=== PATIENT | female | born 1950 | race Caucasian/White ===

== ENCOUNTER 2022-05-13 14:51 | Emergency (ER) | payer OTHER, SELFPAY ==
[2022-05-13] VITALS (8 sets, daily range): BP systolic 126–158; BP diastolic 67–84; PULSE 59–77; RESP 13–23; TEMP 36.6; O2SAT 91–97; BMI 27.8
--- NOTE | 2022-05-13 15:29 | ED.VIS.DYS ---
HPI History of Present Illness Chief Complaint: Shortness of Breath Informant: patient Onset/Context/Timing Onset: Weeks (1-1.5) Context: gradual and onset Timing: Intermittent (Basically with exertion) Quality: Positive for Dyspnea on exertion Current Severity: Mild Maximum Severity: Moderate Worsened by: Exertion; Not Worsened By Lying flat Relieved by: Rest Associated Symptoms Negative for cough Chest Pain: Positive for Intermittent (Soreness, middle chest, occasionally with breathing) Narrative Narrative: Patient has been short of breath for little over a week, started after she got back from a bus trip to and from [place]. She states simultaneously with this she was swollen and sore in both lower extremities. She waited for almost a week before she went to the doctor because she expected it to get better on its own because it was abnormal for her, but it did not. She saw her PCP 3 or so days ago, was prescribed a diuretic, she started that 2 days ago, she said that the swelling in her legs was already getting better though, but the dyspnea was not. She states occasionally she has a midsternal chest discomfort when she takes a deep breath but not always. She does not have orthopnea, cough, fevers or chills. No GI symptoms. No palpitations, near-syncope or syncope. No history of heart or lung problems. Before the diuretic, she was not taking any prescription medications, and her only past medical history was breast cancer and neuropathy in her feet and hands due to the chemotherapy. [facility] Medical History (Updated 05/13/22 @ 19:[address] Ye Rodas MD) Breast cancer Neuropathy Home Medications lymphedema sleeve #1 ea 02/25/17 [Rx Last Taken Unknown] Allergy/AdvReac Type Severity Reaction Status Date / Time Penicillins [PCN] Allergy PT UNABLE Verified 05/13/22 15:10 TO RESPOND-NEEDS F/U Sutures Allergy NEEDS Verified 05/13/22 15:11 FOLLOW-UP Surgical History History of appendectomy Hx of mastectomy Social History Smoking Status: Never smoker ROS ROS ED Constitutional Constitutional ED: Denies chills or fever(s) Eyes Eyes: Denies change in vision or diplopia ENT ENT ED: Denies rhinorrhea or sore throat Cardiovascular Cardiovascular: Reports chest pain and leg edema; Denies orthopnea, palpitations or paroxysmal nocturnal dyspnea Respiratory/Chest Respiratory/Chest: Reports dyspnea and dyspnea on exertion; Denies cough, orthopnea or paroxysmal nocturnal dyspnea Gastrointestinal Gastrointestinal: Denies abdominal pain, diarrhea, nausea or vomiting Genitourinary Genitourinary ED: Denies dysuria or hematuria Musculoskeletal Musculoskeletal: Denies back pain or neck pain Integumentary Denies abscess or rash Neurologic Neurologic: Denies headache(s), paresthesias or weakness Psychiatric Psychiatric: Denies anxiety or suicidal thoughts EXAM Physical Exam Const Vital Signs: 05/13/22 14:54 05/13/22 15:14 05/13/22 15:15 Temperature 97.8 F Temperature Source Temporal Pulse Rate 77 74 Respiratory Rate 16 18 Respiratory Effort Short of Breath Respiratory Depth Shallow Respiratory Pattern Normal Blood Pressure 126/84 H 152/83 H Blood Pressure Mean 98 106 Pulse Ox 97 91 Oxygen Delivery Method Room Air Room Air Room Air 05/13/22 17:48 05/13/22 19:04 05/13/22 19:50 Temperature Temperature Source Pulse Rate 61 63 59 L Respiratory Rate 13 23 H 20 H Respiratory Effort Respiratory Depth Respiratory Pattern Blood Pressure 139/74 H 158/77 H 132/67 H Blood Pressure Mean 95 104 Pulse Ox 94 95 94 Oxygen Delivery Method Room Air Room Air Positive well nourished and well developed General Appearance ED: well developed and NAD HEENT Reports moist mucous membranes normocephalic and atraumatic Eyes PERRL and EOMs intact bilaterally Neck full ROM, no lymphadenopathy, supple and no JVD Chest Wall Chest Narrative: Normal inspection, nontender no crepitance Resp normal respiratory effort Resp Narrative: Few high-pitched possible rhonchi in the lower bases bilaterally, otherwise clear. Conversive in full sentences without difficulty. Cardio regular rate, regular rhythm and no murmurs Rate: Negative for tachycardic GI non-tender and non-distended Auscultation: normoactive bowel sounds Palpation: soft Back/Spine no CVA tenderness General Back: other FROM Extremity normal to inspection General Extremety ED: Yes edema; Negative for pulses abnormal or tenderness General Extremity: edema bilateral lower extremity Details: trace (Symmetric without calf tenderness bilaterally); Negative for pulses abnormal Neuro oriented x3, CN's II-XII intact bilaterally and no sensory deficits noted Sensorium / Orientation: awake and alert Motor Exam: strength 5/5 throughout Skin no rashes or lesions noted and no wounds MDM MDM MDM Narrative Medical decision making narrative: 2 view chest x-ray obtained, on my interpretation shows a moderate left-sided pleural effusion. The rest of the work-up included a D-dimer which was elevated, so I sent her for CT angiography of the chest which shows no pulmonary embolus, but it does confirm the pleural effusion, no consolidation/pneumonia, and as well a small pleural effusion on the right side, no pericardial effusion. I reviewed the images and I agree with the radiologist interpretation. The rest of her testing is noted and unremarkable, arguing against congestive heart failure acutely. My concern would be for possible recurrence of her breast cancer, it was left-sided, she had lymph nodes resected from that side as well, this may or may not have anything to do with the abnormal lymph nodes that were seen in her abdomen. The patient is short of breath but she states she is not dyspneic at rest, and she can walk quite a ways before having to rest. We ambulated her in the ED, she is not hypoxic. I discussed options with the patient, she prefers to stay in the hospital to get a thoracentesis sooner than later because it is , it is the evenings of scheduling is not open, I discussed with radiology and the schedule tomorrow is full, therefore attempting to decrease delays. I discussed with Dr. Crain hospitalist, she states it would not be appropriate to admit the patient because she does not meet inpatient criteria. She did discuss with Dr. Johnson, and states that she is encouraged to call the office tomorrow morning and they will help to set her up for an outpatient thoracentesis and the appropriate testing in agreement with the above. I discussed with the patient, gave her Dr. Johnson's information, and reasons to return. Lab Data Attestation: I reviewed the patient's lab results. Labs: Laboratory Results - last 24 hr 05/13/22 05/13/22 05/13/22 15:10 15:10 15:10 WBC 7.7 RBC 5.67 H Hgb 17.5 H Hct 51.8 H MCV 91.4 MCH 30.9 MCHC 33.8 RDW Std Deviation 45.7 H RDW Coeff of Bucky 13.5 Plt Count 254 MPV 11.1 Immature Gran % (Auto) 0.300 Neut % (Auto) 67.2 Lymph % (Auto) 21.6 [place] % (Auto) 8.9 Eos % (Auto) 1.6 Baso % (Auto) 0.4 Absolute Neuts (auto) 5.2 Absolute Lymphs (auto) 1.66 Nucleated RBC % 0 D-Dimer Quant (PE/DVT) 1.07 H* Sodium 137 Potassium 3.2 L Chloride 100 Carbon Dioxide 30.0 Anion Gap 7 BUN 24 H Creatinine 1.02 Estim Creat Clear Calc 48.48 Est GFR (MDRD) Af Amer 68 Est GFR (MDRD) Non-Af 57 L BUN/Creatinine Ratio 23.5 H Glucose 109 H Calcium 10.3 H Troponin I High Sens 5 B-Natriuretic Peptide 05/13/22 15:10 WBC RBC Hgb Hct MCV MCH MCHC RDW Std Deviation RDW Coeff of Bucky Plt Count MPV Immature Gran % (Auto) Neut % (Auto) Lymph % (Auto) [place] % (Auto) Eos % (Auto) Baso % (Auto) Absolute Neuts (auto) Absolute Lymphs (auto) Nucleated RBC % D-Dimer Quant (PE/DVT) Sodium Potassium Chloride Carbon Dioxide Anion Gap BUN Creatinine Estim Creat Clear Calc Est GFR (MDRD) Af Amer Est GFR (MDRD) Non-Af BUN/Creatinine Ratio Glucose Calcium Troponin I High Sens B-Natriuretic Peptide 7.7 Radiography Diagnostic Testing: Clinical Impression(s) from Imaging Studies Chest X-Ray 05/13/22 15:40 IMPRESSION: Moderate left and small right layering effusions with basilar atelectasis with differential including underlying CHF and cardiogenic setting. Superimposed basilar infiltrates are also a consideration. Electronically Signed: Lawrence Michelle DO at 16:13 EDT Reading Location ID and State: [facility] / [place] , Service support , Chest CTA 05/13/22 16:52 IMPRESSION: 1. No evidence of pulmonary embolus or aortic dissection. 2. Moderate to large left and small right pleural effusion with basilar atelectasis. No evidence of distinct focal infiltrate. 3. Partially viewed periaortic subcentimeter lymph nodes within the upper abdomen of unclear etiology, consider a slight CT abdominal imaging for further characterization. Electronically Signed: Lawrence Michelle DO at 17:23 EDT , Rhythm Strip Rhythm Strip: Sinus Rhythm Rate: 70 Ectopy: None EKG Initial EKG: Attestation: I personally reviewed and interpreted this EKG as follows: Interpretation: Sinus Rhythm and No Acute Injury Pattern Comments: Normal EKG Management Discussion w/another healthcare provider: Hospitalist Discharge Plan Triage Chief Complaint: Shortness of Breath ED Provider: Ye Rodas Dx/Rx/DC Orders Clinical Impression: Pleural effusion, left Instructions: ED Pleural Effusion Prescriptions: No Action (DME) lymphedema sleeve 20-30 Qty: 1 0RF Dose Instruction: As directed Rx Instructions: 1 compression sleeve 20-30mmHG strength Primary Care Provider: Polo Figueroa Referrals: Parveen Johnson MD [Med Staff - Active Staff] - 1 Day (call in AM for info on getting set up for thoracentesis & follow up) NOT,DEFINED [Non-Staff] - Activity Restrictions/Additional Instructions: If you are so short of breath you feel like you cannot wait until your thoracentesis, then return to the ER to be reevaluated Disposition Disposition: Home, Self Care
--- NOTE | 2022-05-13 15:40 | RAD_ITS ---
STUDY: X-RAY CHEST REASON FOR EXAM: Female, 71 years old. sob TECHNIQUE: PA and lateral views of the chest. COMPARISON: None. FINDINGS: Small right moderate left layering effusion is present. Bilateral basilar atelectasis with superimposed infiltrates are not excluded. Normal size heart. Normal mediastinum and patrick. Normal visualized pulmonary arteries. There is atherosclerotic tortuosity of the aortic arch and descending thoracic aorta. Normal visualized thoracic spine. Normal visualized ribs, clavicles, and shoulders. There is no demonstrated abnormality of the visualized soft tissue structures of the upper abdomen. RAD/Chest PA and Lateral IMPRESSION: Moderate left and small right layering effusions with basilar atelectasis with differential including underlying CHF and cardiogenic setting. Superimposed basilar infiltrates are also a consideration. Electronically Signed: Lawrence Michelle DO at 16:13 EDT ,
[2022-05-13 16:09] LABS: Absolute Lymphocyte Count 1.66 X10^3/uL (0.83-4.51); Absolute Neutrophil Count 5.2 X10^3/uL (2.0-7.7); Basophil# 0.03 X10^3/uL; Basophil% 0.4 % (0-1); Eosinophil# 0.12 X10^3/uL; Eosinophils% 1.6 % (0-5); Hematocrit 51.8 % (37-47); Hemoglobin 17.5 g/dL (12.0-15.0); Lymphocyte # 1.66 X10^3/ul (0.83-4.51); Lymphocyte % 21.6 % (19-41); Mean Corp Hgb Conc 33.8 g/dL (32-36); Mean Corpuscular Hgb 30.9 pg (27.0-32.0); Mean Corpuscular Volume 91.4 fL (81-99); Mean Platelet Vol. 11.1 fl (6.2-12.0); Monocyte# 0.68 X10^3/uL; Monocyte% 8.9 % (0-10); NRBC Flagged by Analyzer 0 % (0-5); Neutrophil # 5.17 X10^3/uL (2.7-7.7); Neutrophil % 67.2 % (47-70); Platelet Count 254 K/mm3 (150-450); RBC Distribution Width CV 13.5 % (11.6-14.6); RBC Distribution Width SD 45.7 fl (35.1-43.9); Red Blood Count 5.67 M/mm3 (4.2-5.4); White Blood Count 7.7 K/mm3 (4.4-11.0)
[2022-05-13 16:12] LABS: Anion Gap 7 (5-15); BUN 24 mg/dL (7-18); BUN/Creat Ratio 23.5 RATIO (10-20); Calcium,Total 10.3 mg/dL (8.5-10.1); Chloride 100 mmol/L (98-107); Creatinine, Serum 1.02 mg/dL (0.55-1.02); EST Glomerular Filtration Rate 57 mL/min (>60); Est Glom Filt Rate - Afr Amer 68 mL/min (>60); Estimated Creatinine Clearance 48.48 ml/min; Glucose 109 mg/dL (74-106); Potassium 3.2 mmol/L (3.5-5.1); Sodium Level 137 mmol/L (136-145); Troponin-I HS 5 pg/mL (3.0-54.0)
[2022-05-13 16:25] LABS: D-Dimer Quantitative (DVT/PE) 1.07 FEU/ug/m (0.27-0.49)
[2022-05-13 16:43] LABS: BNP,B-Type NATRIURETIC PEPTIDE 7.7 pg/mL (0-100)
--- NOTE | 2022-05-13 16:52 | CT_ITS ---
STUDY: CTA CHEST REASON FOR EXAM: Female, 71 years old. sob, pleural effusion, elevated d-dimer, hx br ca RADIATION DOSAGE (If Supplied By Facility): CTDIvol = ( 13.65 ) mGy, DLP = ( 347.43 ) mGycm TECHNIQUE: The examination was performed with the intravenous administration of IV 100mL Isovue-370. Post-processing of the angiographic images was performed, with multiplanar reformation and 3D reconstruction. Individualized dose optimization techniques were used for this CT. COMPARISON: None. FINDINGS: Normal enhancement of the main pulmonary artery and right and left pulmonary arteries. Normal enhancement of the bilateral peripheral pulmonary arteries. There is no demonstrated pulmonary embolism. Normal thoracic aorta and visualized great vessels. There is no demonstrated aortic dissection. Normal heart and pericardium. Normal mediastinum. Normal hilar regions. Normal visualized trachea and bronchi. The lungs are well expanded. Left lower lobe atelectatic changes are present with minimal atelectasis at the right lower lobe. Small right and moderate left effusion is present. Normal chest wall structures. Normal osseous structures. There are scattered subcentimeter nodes within the periaortic region at the level of the celiac axis with the largest measuring [address]/CTA Chest W/WO Contrast IMPRESSION: 1. No evidence of pulmonary embolus or aortic dissection. 2. Moderate to large left and small right pleural effusion with basilar atelectasis. No evidence of distinct focal infiltrate. 3. Partially viewed periaortic subcentimeter lymph nodes within the upper abdomen of unclear etiology, consider a slight CT abdominal imaging for further characterization. Electronically Signed: Lawrence Michelle DO at 17:23 EDT ,
== END 2022-05-13 20:28 | disposition home or self-care (01) ==
PROVIDERS: Emergency Provider Emergency Medicine; PCP Family Medicine; Visit Provider Emergency Medicine
DX: J90 Pleural effusion, not elsewhere classified (principal); R79.1 Abnormal coagulation profile; Z85.3 Personal history of malignant neoplasm of breast
CPT/HCPCS: 71046; 71275; 80048; 83880; 84484; 85025; 85379; 93005; 99283; Q9967

== ENCOUNTER → 2022-05-17 | Outpatient (CLI) | payer SELFPAY ==
[2022-05-17 14:00] LABS: Platelet Count 244 K/mm3 (150-450)
[2022-05-17 14:07] LABS: Prothrombin Time (Protime)PT. 13.2 SECONDS (11.7-14.9)
[2022-05-17 14:08] LABS: Partial Thromboplast Time 23.6 Seconds (24.1-36.2)
[2022-05-17 14:12] LABS: ALB/GLOB Ratio 1.1 RATIO (0.9-2.4); Globulin 3.5 g/dL (2.2-4.2); LDH 204 U/L (84-246); Protein, Total 7.2 g/dL (6.4-8.2)
== END | disposition home or self-care (01) ==
PROVIDERS: PCP Family Medicine; Referring Provider Internal Medicine Critical Care Medicine; Visit Provider Internal Medicine Critical Care Medicine
DX: J90 Pleural effusion, not elsewhere classified (principal)
CPT/HCPCS: 36415; 83615; 84156; 85049; 85610; 85730

== ENCOUNTER → 2022-05-18 | Outpatient (CLI) | payer SELFPAY, OTHER ==
--- NOTE | 2022-05-17 | FLU_PTH ---
PATIENT: BEATA CROWE LOC: [facility]#:[id number] AGE/SX: 71/F ROOM: RE05/18/[address]: Dr. Navjot Willis DO : 1950 BED: DIS: 05/18/2022 SPEC #: [id number] RECD: 05/18/22 00:51 STATUS: DARIUS MONIQUE #: [id number] EVANS: 05/17/22 00:[address]: Navjot Willis DEPT: CYTOLOGY RECD BY: Jacob Stone ENTERED: 05/18/22 09:58 SP TYPE: Fluid OTHR DR: Dr. Polo Figueroa DO Tissues: THORACIC FLUID Procedures: Special Stain Group II Surgery Specimen Level IV Cytospin Fluid HEADER OPERATION: Thoracentesis PRE-OP DIAGNOSIS: Pleural effusion TISSUE SUBMITTED: Thoracentesis fluid for cytology DIAGNOSIS CYTOLOGY Thoracentesis fluid for cytology (cytospin and cell block): Rare atypical epithelioid cells with neuroendocrine features. AM:david 05/20/2022 COMMENT Clinical correlation is suggested. Immunohistochemistry ([id number]) supports the above diagnosis. Case has been reviewed in consultation with Dr. Harris who concurs with the above diagnosis. IDC:SJ CYTOLOGY STUDY Slides are reviewed. CYTOLOGY GROSS Received is 90 ml of carin cloudy fluid labeled with the patient's name and and designated per the requisition as thoracentesis. Submitted for cytology preparation including cell block. / david 05/18/2022 TC: CPT: 88910, 49693
--- NOTE | 2022-05-17 | IMM_PTH ---
PATIENT: BEATA CROWE LOC: [facility]#:[id number] AGE/SX: 71/F ROOM: RE05/18/[address]: Dr. Navjot Willis DO : 1950 BED: DIS: 05/18/2022 SPEC #: [id number] RECD: 05/19/22 13:50 STATUS: DARIUS REQ #: [id number] EVANS: 05/17/22 00:[address]: Navjot Willis DEPT: IMMUNOHISTOCHEMISTRY RECD BY: Brandee Pierce ENTERED: 05/19/22 13:52 SP TYPE: IMMUNO OTHR DR: Dr. Polo Figueroa DO Tissues: THORACIC FLUID Procedures: Synapto (add) NAPSIN A (add) Aamir Ret (add) CD56 (add) CHROMO (add) CK20 (add) CK7 (add) KI-67 (add) MAMM (add) P53 (add) AL (add) TTF1 (add) Pankeratin (add) GATA3 (add) CD68 (ADD) ER (initial) NSE (add) PHYSICIAN [facility] INSTITUTION [address] [address] SPECIMEN INFORMATION: Tissue Source: Thoracentesis fluid Clinical Info: Pleural effusion Specimen Number: [id number] CPT code: 22070, 71803 x16 METHODOLOGY: Deparaffinized sections of prefer/formalin-fixed tissue or PAP/DQ stained slides are incubated with monoclonal/polyclonal antibodies/oligonucleotide probes. Localization is made via biotin free immunoperoxidase method. Appropriate controls are performed and reacted as expected. Results on target cell population are indicated in the following table: RESULTS: ANTIBODY / CLONE RESULT ER (6F11) negative AL (1E2) negative Mammaglobin (31A5) negative GATA3 (L50-823) positive AE1-3 (AE1/AE3/PCK26) positive CK7 (OV-TL12/30) positive CK20 (KS20.8) negative CD68 (KP-1) negative TTF-1 (8G7G3/1) negative Napsin A (Rabbit Polyclonal) negative CALRET (polyclonal) negative P53 (DO-7) positive Ki-67 (30-9) positive, rare cells Synapto (polyclonal) positive Chromo (LK2H10) negative CD56 (123C3.D5) negative NSE Neuron Specific Enolase positive, dim These tests were developed and their performance characteristics determined by [facility]. They may not have been cleared or approved by the U.S. Food and Drug Administration. The FDA has determined that such clearance or approval is not necessary. The above immunohistochemical/dualISH markers are ordered and reviewed by the Pathologist. INTERPRETATION: Thoracentesis fluid (cell block): Rare atypical epithelioid cells with neuroendocrine features. AM:david 05/20/2022 Case has been reviewed in consultation with Dr. Harris who concurs with the above diagnosis. IDC:[id number]
--- NOTE | 2022-05-18 07:29 | US_ITS ---
EXAM: Ultrasound-guided thoracentesis HISTORY: Pleural Effusion COMPARISON: None Technique: Ultrasound-guided, 100 mL fluid sent to lab for further evaluation FINDINGS: After informed consent was obtained, which included discussion of risks and benefits of the procedure including the possibility of pneumothorax and chest tube insertion, an appropriate site for ultrasound-guided thoracentesis determined in the left hemithorax. The area was prepped and draped in a sterile manner, and 2% Xylocaine was used as local anesthetic. Under ultrasound guidance, a valved range catheter was advanced into the left hemithorax. Straw-colored serous fluid return was noted and the first 100 mL were obtained and set aside for laboratory analysis. The tube was then hooked to suction and another 1050 mL of straw-colored serous fluid was withdrawn from the hemithorax before the patient could the procedure no longer. Post procedural chest x-ray did not show evidence of pneumothorax. Patient tolerated the procedure with no immediate complications. US/Thoracentesis W US IMPRESSION: Successful sonographic guided left thoracentesis Electronically Signed: Neville Rodriguez MD at 9:03 EDT ,
[2022-05-18] MEDS: Lidocaine 2% (20 ml mdv) 20 ML Vial INFILT (08:07)
--- NOTE | 2022-05-18 08:20 | RAD_ITS ---
STUDY: X-RAY CHEST REASON FOR EXAM: Female, 71 years old. Postthoracentesis TECHNIQUE: Portable upright inspiration expiration views COMPARISON: 05/13/2022 FINDINGS: Patient is status post left thoracentesis. No postprocedural pneumothorax noted. Lungs are expanded, previously noted left pleural effusion has significantly decreased in size after the thoracentesis but still persists. Stable small right pleural effusion. No superimposed infiltrate or atelectasis. Normal size heart. Normal mediastinum and patrick. Normal visualized pulmonary arteries. Normal visualized aortic arch and descending thoracic aorta. There are diffuse degenerative changes of the visualized thoracic spine. Normal visualized ribs, clavicles, and shoulders. Clips in the left axilla noted. There is no demonstrated abnormality of the visualized soft tissue structures of the upper abdomen. RAD/Chest Insp/Exp 2 View IMPRESSION: No postprocedural pneumothorax Persistent bilateral pleural effusions of the left pleural effusion has significantly decreased in size after thoracentesis Electronically Signed: Neville Rodriguez MD at 8:33 EDT ,
[2022-05-18 08:40] VITALS: BP 105/60; BP 109/66; BP 116/69; BP 89/55; PULSE 67; PULSE 68; PULSE 83; PULSE 88; RESP 18; TEMP 36; O2SAT 94; O2SAT 95
[2022-05-18 08:52] LABS: Cytology, Body Fluid / CSF SEE PATHOLOGY REPORT
[2022-05-18 09:24] LABS: Glucose, Body Fluid 113 mg/dL (40-70); LDH,Body Fluid 145 Units/l (Not Establ.); Protein, Body Fluid 4.2 g/dL (Not Establ.)
[2022-05-18 09:37] LABS: Body Fluid Mononuclear WBC # 0.708 10^3/uL; Body Fluid Mononuclear WBC % 93.3 %; Body Fluid Polynuclear WBC # 0.051 10^3/uL; Body Fluid Polynuclear WBC % 6.7 %; Body Fluid Total Cells Counted 0.889 10^3/ul; White Blood Count/Body Fluid 0.759 10^3/uL
[2022-05-18 09:39] LABS: Appearance/Body Fluid SL CLDY; Auto B Fluid Analyzer BKGD Ct COUNTS W/IN LIMITS (W/IN LIMITS); Color/Body Fluid YELLOW; Source- Body Fluid THORACENTESIS
[2022-05-18 11:22] LABS: Lymphocytes 39 %; Macrophages 25 %; Mesothelial Cells 7 %; Monocytes 23 %; Neutrophil (Segs) 6 %
[2022-05-18 11:23] LABS: Body Fluid QC Type(s) BF1Q; Red Cell Count/Body Fluid 605 /mm3
[2022-05-20 13:19] LABS: Pathologist Comment/Body Fluid Reviewed
== END | disposition home or self-care (01) ==
PROVIDERS: PCP Family Medicine; Referring Provider Internal Medicine Critical Care Medicine; Visit Provider Internal Medicine Critical Care Medicine
DX: J90 Pleural effusion, not elsewhere classified (principal)
CPT/HCPCS: 32555; 71046; 82945; 83615; 84157; 87070; 87075; 87205; 88108; 88305; 88313; 88341; 88342; 89050

== ENCOUNTER → 2022-05-31 | Outpatient (CLI) | payer SELFPAY, OTHER ==
--- NOTE | 2022-05-31 08:20 | RAD_ITS ---
INDICATION: Pleural Effusion EXAMINATION/TECHNIQUE: X-RAY - XR Chest 2 Views COMPARISON: 05/18/2022. FINDINGS: LINES/DEVICES: None. LUNGS: Moderate left lower lobe infiltrate increased. Moderate left pleural effusion increased. Moderate right lower lobe infiltrate and small right pleural effusion stable. MEDIASTINUM AND CARDIOVASCULAR STRUCTURES: Cardiac silhouette not enlarged. Central airways and mediastinal contour are unremarkable. BONES AND SOFT TISSUES: Unremarkable. RAD/Chest PA and Lateral IMPRESSION: Right basilar infiltrates and effusions detailed above and increased on the left. Electronically Signed: Chad Pnito MD, THOMAS at 17:04 EDT ,
== END | disposition home or self-care (01) ==
PROVIDERS: PCP Family Medicine; Referring Provider Internal Medicine Critical Care Medicine; Visit Provider Internal Medicine Critical Care Medicine
DX: J90 Pleural effusion, not elsewhere classified (principal)
CPT/HCPCS: 71046

== ENCOUNTER → 2022-06-02 | Outpatient (CLI) | payer SELFPAY ==
--- NOTE | 2022-06-02 07:50 | ECHOD_ITS ---
Reason For Study: Pleural Effusion Procedure This was a 2D Doppler, Color Flow transthoracic echocardiogram. Myocardial strain analysis was performed in this exam to aid in the assessment of cardiac function. Exam performed in department. Left Ventricle Normal LV size. Left ventricular systolic function is normal. The estimated ejection fraction is 55 %. Stage 1 diastolic dysfunction. No regional wall motion abnormalities noted. Right Ventricle Normal RV size. Normal systolic function. Atria Normal left atrium. Normal right atrium. Mitral Valve Normal mitral valve. Tricuspid Valve Normal tricuspid valve. Aortic Valve Trisinus/trileaflet aortic valve. Pulmonic Valve Normal pulmonic valve. Great Vessels Normal aortic root. The pulmonary artery is normal size. Pericardium/Pleural No pericardial effusion. Moderate size left pleural effusion. MMode/2D Measurements & Calculations LVIDd: 4.5 cm IVSd: 0.82 cm LVOT diam: 1.8 cm LVIDs: 3.3 cm LVPWd: 0.60 cm LVOT area: 2.6 cm2 RVDd: 2.6 cm FS: 27.2 % Ao root diam: 3.2 cm LAV(MOD-bp): 25.4 ml LVAd ap4: 20.2 cm2 LAV(MOD-bp) Indexed: 13.4 ml/m2 LVLd ap4: 6.6 cm LAV(MOD-sp2): 26.4 ml EDV(MOD-sp4): 49.8 ml LAV(MOD-sp4): 19.8 ml EDV(sp4-el): 52.1 ml LVAs ap4: 11.8 cm2 LVLs ap4: 5.6 cm ESV(MOD-sp4): 21.1 ml ESV(sp4-el): 21.1 ml EF(MOD-sp4): 57.6 % EF(sp4-el): 59.4 % LVAd ap2: 20.7 cm2 SV(MOD-sp4): 28.7 ml SV(MOD-sp2): 28.2 ml LVLd ap2: 6.9 cm EDV(MOD-sp2): 51.3 ml EDV(sp2-el): 53.2 ml LVAs ap2: 12.6 cm2 LVLs ap2: 5.8 cm ESV(MOD-sp2): 23.0 ml ESV(sp2-el): 23.2 ml EF(MOD-sp2): 55.1 % SV(sp4-el): 30.9 ml LA dimension(2D): 2.9 cm LA A4 area: 10.8 cm2 RA A4 area: 6.5 cm2 Time Measurements MV dec time: 0.25 sec Doppler Measurements & Calculations MV E max gavin: 55.9 cm/sec Lat Peak E' Gavin: 8.6 cm/sec Med Peak E' Gavin: 9.0 cm/sec MV A max gavin: 88.1 cm/sec E/E' lat: 6.5 E/E' med: 6.2 MV E/A: 0.63 Ao V2 max: 141.9 cm/sec LV V1 max: 102.0 cm/sec MV dec slope: 224.6 cm/sec2 Ao max P.1 mmHg LV V1 max P.2 mmHg TEDDY(V,D): 1.9 cm2 PA V2 max: 97.3 cm/sec PA max PG (full): 3.0 mmHg ECHO/Echo Complete Interpretation Summary Normal LV size. Left ventricular systolic function is normal. The estimated ejection fraction is 55 %. Stage 1 diastolic dysfunction. The global longitudinal strain is mildly abnormal. The global longitudinal stra in = -15.4% (abnormal). Ordering Physician: Navjot Willis Referring Physician: Navjot Willis Performed By: Gris Yusuf
== END | disposition home or self-care (01) ==
LOC: CVS 07:49
PROVIDERS: PCP Family Medicine; Referring Provider Internal Medicine Critical Care Medicine; Visit Provider Internal Medicine Critical Care Medicine
DX: J90 Pleural effusion, not elsewhere classified (principal); R06.02 Shortness of breath
CPT/HCPCS: 93306

== ENCOUNTER → 2022-06-04 | Outpatient (CLI) | payer SELFPAY ==
--- NOTE | 2022-06-04 | FLU_PTH ---
PATIENT: BEATA CROWE LOC: [facility]#:[id number] AGE/SX: 71/F ROOM: RE06/04/[address]: Dr. Navjot Willis DO : 1950 BED: DIS: 06/04/2022 SPEC #: [id number] RECD: 06/04/22 09:14 STATUS: DARIUS LOREEDm #: [id number] EVANS: 06/04/22 00:[address]: Navjot Willis DEPT: CYTOLOGY RECD BY: Imelda Barraza ENTERED: 06/04/22 09:15 SP TYPE: Fluid OTHR DR: Dr. Polo Figueroa DO Tissues: Pleural fluid, NOS Procedures: Special Stain Group II Surgery Specimen Level IV Cytospin Fluid HEADER OPERATION: Ultrasound-guided thoracentesis left PRE-OP DIAGNOSIS: Left pleural effusion TISSUE SUBMITTED: Thoracentesis fluid for cytology DIAGNOSIS CYTOLOGY Thoracentesis fluid for cytology (cytospin): Atypical neuroendocrine cells present. See comment. AM:david 06/09/2022 COMMENT Immunohistochemistry ([id number]) supports the above diagnosis. 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 Clinical correlation is suggested. This case was discussed with Dr. Amaya on 06/10/2022 at 9:25 a.m. Case has been reviewed in consultation with Dr. Harris who concurs with the above diagnosis. IDC:SJ CYTOLOGY STUDY Slides are reviewed. CYTOLOGY GROSS Received is 80 ml of yellow cloudy fluid labeled with the patient's name and and designated per the requisition as thoracentesis. Submitted for cytology preparation including cell block. / david 06/04/2022 TC:0 CPT: 55080, 92624
--- NOTE | 2022-06-04 | IMM_PTH ---
PATIENT: BEATA CROWE LOC: [facility]#:[id number] AGE/SX: 71/F ROOM: RE06/04/[address]: Dr. Navjot Willis DO : 1950 BED: DIS: 06/04/2022 SPEC #: [id number] RECD: 06/07/22 13:34 STATUS: DARIUS REQ #: [id number] EVANS: 06/04/22 00:[address]: Navjot Willis DEPT: IMMUNOHISTOCHEMISTRY RECD BY: Brandee Pierce ENTERED: 06/07/22 13:36 SP TYPE: IMMUNO OTHR DR: Dr. Polo Figueroa DO Tissues: THORACIC FLUID Procedures: Synapto (add) NAPSIN A (add) CD56 (add) CHROMO (add) CK20 (add) CK7 (add) KI-67 (add) P53 (add) TTF1 (add) Pankeratin (add) GATA3 (add) P40 (add) ER (initial) NSE (add) PHYSICIAN & INSTITUTION [address] [address] SPECIMEN INFORMATION: Tissue Source: Thoracentesis fluid Clinical Info: Left pleural effusion Specimen Number: [id number] CPT code: 89490, 72391 x13 METHODOLOGY: Deparaffinized sections of prefer/formalin-fixed tissue or PAP/DQ stained slides are incubated with monoclonal/polyclonal antibodies/oligonucleotide probes. Localization is made via biotin free immunoperoxidase method. Appropriate controls are performed and reacted as expected. Results on target cell population are indicated in the following table: RESULTS: ANTIBODY / CLONE RESULT ER (6F11) negative GATA3 (L50-823) negative AE1-3 (AE1/AE3/PCK26) positive CK7 (OV-TL12/30) positive CK20 (KS20.8) negative CD56 (123C3.D5) negative Chromo (LK2H10) negative Synapto (polyclonal) positive NSE Neuron Specific Enolase positive TTF-1 (8G7G3/1) negative Napsin A (Rabbit Polyclonal) negative P40 (BC28) negative P53 (DO-7) negative Ki-67 (30-9) negative These tests were developed and their performance characteristics determined by [facility]. They may not have been cleared or approved by the [place]. Food and Drug Administration. The FDA has determined that such clearance or approval is not necessary. The above immunohistochemical/dualISH markers are ordered and reviewed by the Pathologist. INTERPRETATION: Thoracentesis fluid (cell block): Rare atypical cells with neuroendocrine features. See comment. 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 Case has been reviewed in consultation with Dr. Harris who concurs with the above diagnosis. IDC:SJ
--- NOTE | 2022-06-04 08:03 | US_ITS ---
PROCEDURE: ULTRASOUND GUIDED THORACENTESIS. DATE: June 04, 2022. INDICATION: Female, 71 years old. Left pleural effusion. PHYSICIAN: Lupillo Sky M.D. PROCEDURE: The risks, benefits, and alternatives to the procedure were explained to the patient. The specific risks of bleeding, infection, and pneumothorax requiring chest tube insertion were discussed and accepted. Written informed consent was obtained. Ultrasonographic evaluation of the left lower pleural space was carried out. An adequate pocket was identified. The patient was placed in the sitting, upright position. The overlying skin was prepped and draped in sterile fashion. 1% lidocaine was administered subcutaneously for local anesthesia. Under ultrasound guidance, a 5 [place] thoracentesis needle/catheter system was advanced into the left posterior lower pleural fluid collection. Approximately 1350 mL of carin-colored fluid was drained. The catheter was removed, and a sterile dressing was applied. A specimen was collected and sent to the laboratory for analysis, as requested by the referring clinician. The patient tolerated the procedure well. A chest x-ray was ordered. US/Thoracentesis W US IMPRESSION: Ultrasound-guided left thoracentesis. Electronically Signed: Lupillo Sky MD at 9:22 EDT ,
[2022-06-04] MEDS: Lidocaine 2% (20 ml mdv) 20 ML Vial INFILT (08:22)
--- NOTE | 2022-06-04 08:38 | RAD_ITS ---
STUDY: X-RAY CHEST REASON FOR EXAM: Female, 71 years old. POST THORA TECHNIQUE: AP inspiration and expiration views. COMPARISON: Comparison is made with prior study dated May 31, 2022. FINDINGS: The patient is status post left thoracentesis. No evidence of pneumothorax. Residual pleural parenchymal changes at the left lung base. RAD/Chest Insp/Exp 2 View IMPRESSION: Status post left thoracentesis. No evidence of pneumothorax. Mild residual pleural-parenchymal changes at the left lung base. Electronically Signed: Lupillo Sky MD at 8:25 EDT ,
[2022-06-04 08:44] LABS: Cytology, Body Fluid / CSF SEE PATHOLOGY REPORT
[2022-06-04 09:06] LABS: Body Fluid Mononuclear WBC # 0.776 10^3/uL; Body Fluid Mononuclear WBC % 93.1 %; Body Fluid Polynuclear WBC # 0.058 10^3/uL; Body Fluid Polynuclear WBC % 6.9 %; Body Fluid Total Cells Counted 0.937 10^3/ul; White Blood Count/Body Fluid 0.834 10^3/uL
[2022-06-04 09:22] LABS: Glucose, Body Fluid 102 mg/dL (40-70); LDH,Body Fluid 208 Units/l (Not Establ.); Protein, Body Fluid 3.8 g/dL (Not Establ.)
[2022-06-04 09:23] LABS: Appearance/Body Fluid SL CLDY; Auto B Fluid Analyzer BKGD Ct COUNTS W/IN LIMITS (W/IN LIMITS); Color/Body Fluid YELLOW; Source- Body Fluid THORACENTESIS
[2022-06-04 10:14] LABS: Red Cell Count/Body Fluid 845 /mm3
[2022-06-04 10:53] LABS: Lymphocytes 56 %; Macrophages 36 %; Other Cell Type/BF 8 %
[2022-06-04 10:56] LABS: Body Fluid QC Type(s) BF1Q,BF2Q
[2022-06-04 11:27] VITALS: BP 118/64; BP 119/58; BP 119/61; BP 119/67; PULSE 75; PULSE 79; RESP 18; RESP 20; RESP 22; TEMP 36.2; O2SAT 93; O2SAT 94
[2022-06-08 09:52] LABS: Pathologist Comment/Body Fluid Reviewed
== END | disposition home or self-care (01) ==
LOC: US 08:02
PROVIDERS: PCP Family Medicine; Referring Provider Internal Medicine Critical Care Medicine; Visit Provider Internal Medicine Critical Care Medicine
DX: J90 Pleural effusion, not elsewhere classified (principal)
CPT/HCPCS: 32555; 71046; 82945; 83615; 84157; 87070; 87075; 87205; 88108; 88305; 88313; 88341; 88342; 89050